=== PATIENT | male | born 1965 | race Caucasian/White ===

== ENCOUNTER 2018-07-23 06:30 | Day surgery (SDC) | payer OTHER ==
[~2018-07-23 06:30] MED LIST: ALTACE2.5 MG
== END 2018-07-23 10:00 | disposition home or self-care (01) ==
LOC: AMB-ENDOS 06:30
DX: K57.32 Diverticulitis of large intestine without perforation or abscess without bleeding (principal); K64.1 Second degree hemorrhoids